=== PATIENT | female | born 1970 | race Caucasian/White ===

== ENCOUNTER → 2021-12-20 | Outpatient (CLI) | payer MEDICARE, OTHER ==
[~2021-12-20] MED LIST: ALBU90OI INH; BUSP10 PO; CYCL10 PO; Cyclobenzaprine5 MG PO; DOCU100 PO; DULO30 PO; Flonase 0.05% N16 GM; HYDACE5 PO; LEVSOD50 PO; MELO7.5 PO; METPRE4DP PO; MOMENI; NAPR500 PO; ONDA4 PO; PSEU120ER PO; TRAM50 PO; Vibramycin100 MG PO
[2021-12-20 13:06] LABS: BASOPHILS ABSOLUTE AUTO 0.11 K/mm3 (0.00-0.23); BASOPHILS PERCENT AUTO 1 % (0-2); EOSINOPHILS ABSOLUTE AUTO 0.39 K/mm3 (0.00-0.68); EOSINOPHILS PERCENT AUTO 4 % (0-6); Hematocrit 38.3 % (33.0-51.0); Hemoglobin 12.7 g/dL (11.5-16.0); Mean Corpuscular HGB 32.5 pg (26.0-34.0); Mean Corpuscular HGB Conc 33.2 g/dL (31.5-36.5); Mean Corpuscular Volume 98 fL (80-100); RDW Coefficient Variation 14.2 % (11.7-14.2); RDW Standard Deviation 50.9 fL (35.1-46.3); Red Blood Cell Count 3.91 M/mm3 (3.80-5.20); White Blood Cell Count 10.94 K/mm3 (4.00-11.30)
[2021-12-20 13:14] LABS: IMMATURE GRAN ABSOLUTE AUTO 0.04 K/mm3 (0.00-0.10); IMMATURE GRAN PERCENT AUTO 0 % (0-1); LYMPHOCYTES ABSOLUTE AUTO 5.14 K/mm3 (0.84-5.20); LYMPHOCYTES PERCENT AUTO 47 % (21-46); MONOCYTES ABSOLUTE AUTO 0.92 K/mm3 (0.16-1.47); MONOCYTES PERCENT AUTO 8 % (4-13); Mean Platelet Volume 10.1 fL (9.1-12.4); NEUTROPHILS ABSOLUTE AUTO 4.34 K/mm3 (1.96-9.15); NEUTROPHILS PERCENT AUTO 40 % (41-73); Platelet Count 117 K/mm3 (150-400)
[2021-12-20 13:15] LABS: Albumin, Blood 2.4 g/dL (3.4-5.0); Albumin/Globulin Ratio 0.4 (0.8-1.8); Bilirubin, Total 1.1 mg/dL (0.1-1.0); Bun/Creatinine Ratio 11.2 (12.0-20.0); Calcium, Blood 9.5 mg/dL (8.5-10.1); Creatinine, Blood 1.07 mg/dL (0.40-1.00); Potassium, Blood 3.4 mmol/L (3.5-5.5); Total Protein, Blood 8.4 g/dL (6.4-8.2)
== END ==
LOC: LAB SHORT 12:51
PROVIDERS: Physician Assistant
DX: R11.2 Nausea with vomiting, unspecified (principal)
CPT/HCPCS: 80053; 85025

== ENCOUNTER 2022-01-05 08:43 | Emergency (ER) | payer MEDICARE ==
[~2022-01-05 08:43] MED LIST changes: +Ativan1 MG; +BACLOFEN10 M4 PO; +ONDA4ODT MM; +OXYC10TA19; +Percocet 10-321 EACH PO; +TAMO10 PO
== END 2022-01-05 09:05 | disposition left against medical advice (07) ==
LOC: ER 08:43
DX: Z53.21 Procedure and treatment not carried out due to patient leaving prior to being seen by health care provider (principal)

== ENCOUNTER 2022-01-07 13:10 | Emergency (ER) | payer MEDICARE ==
[~2022-01-07] VITALS: Ht 172.7 cm; Wt 136.1 kg
[~2022-01-07 13:10] MED LIST changes: -OXYC10TA19; +OXYC10TA19 PO
[2022-01-07 14:22] LABS: Hematocrit 36.2 % (33.0-51.0); Hemoglobin 11.8 g/dL (11.5-16.0); Mean Corpuscular HGB Conc 32.6 g/dL (31.5-36.5); Mean Corpuscular Volume 101 fL (80-100); Mean Platelet Volume 10.1 fL (9.1-12.4); Platelet Count 113 K/mm3 (150-400); RDW Coefficient Variation 17.2 % (11.7-14.2); RDW Standard Deviation 63.6 fL (35.1-46.3); Red Blood Cell Count 3.58 M/mm3 (3.80-5.20); White Blood Cell Count 17.52 K/mm3 (4.00-11.30)
[2022-01-07 15:05] LABS: Alanine Aminotransfer (ALT/SGP 39 U/L (12-78); Albumin, Blood 2.2 g/dL (3.4-5.0); Albumin/Globulin Ratio 0.4 (0.8-1.8); Alk Phos 462 U/L (50-136); Anion Gap 9 mmol/L (6-16); Aspartate Aminotrans (AST/SGOT 197 U/L (12-37); Bilirubin, Total 3.6 mg/dL (0.1-1.0); Blood Urea Nitrogen 10 mg/dL (8-24); Bun/Creatinine Ratio 11.4 (12.0-20.0); CO2, Blood 25 mmol/L (21-32); Calcium, Blood 9.6 mg/dL (8.5-10.1); Chloride, Blood 103 mmol/L (98-108); Creatinine, Blood 0.88 mg/dL (0.40-1.00); Ethanol (Alcohol), Blood, Med <3 mg/dL; Globulin, Blood 6.2 g/dL (2.2-4.0); Glomerular Filtration Rate >60 (60-); Glucose, Blood 109 mg/dL (70-99); Sodium, Blood 137 mmol/L (136-145); Total Protein, Blood 8.4 g/dL (6.4-8.2)
[2022-01-07 15:22] LABS: BASOPHILS PERCENT MAN 0 % (0-2); EOSINOPHILS ABSOLUTE MAN 0.35 K/mm3 (0.00-0.68); EOSINOPHILS PERCENT MAN 2 % (0-6); LYMPHOCYTES % ATYPICAL MANUAL 1 % (0-0); LYMPHOCYTES PERCENT MAN 39 % (21-46); MONOCYTES ABSOLUTE MAN 1.57 K/mm3 (0.16-1.47); MONOCYTES PERCENT MAN 9 % (4-13); NEUTROPHILS ABSOLUTE MAN 8.58 K/mm3 (1.96-9.15); SEG NEUTROPHILS PERCENT MAN 49 % (41-73); TOTAL CELLS COUNTED 100
[2022-01-07 15:52] LABS: Acetaminophen, Random <2.0 ug/mL (10.0-30.0); Salicylate <1.7 mg/dL (2.8-20.0)
== END 2022-01-07 15:47 | disposition left against medical advice (07) ==
LOC: ER 13:10
PROVIDERS: Physician Assistant
DX: R47.81 Slurred speech (principal); C50.919 Malignant neoplasm of unspecified site of unspecified female breast; C79.51 Secondary malignant neoplasm of bone; Z53.21 Procedure and treatment not carried out due to patient leaving prior to being seen by health care provider
CPT/HCPCS: 36415; 70450; 80053; 85025; 93005; 93010; 96374; 99284-25; G0480; J1885

== ENCOUNTER 2022-01-16 17:35 | Inpatient (IN) | payer MEDICARE ==
[~2022-01-16] VITALS: Ht 172.7 cm; Wt 85.2 kg
[2022-01-16 18:05] LABS: Hematocrit 32.2 % (33.0-51.0); Hemoglobin 10.6 g/dL (11.5-16.0); Mean Corpuscular HGB 33.8 pg (26.0-34.0); Mean Corpuscular HGB Conc 32.9 g/dL (31.5-36.5); Mean Corpuscular Volume 103 fL (80-100); Mean Platelet Volume 9.8 fL (9.1-12.4); NRBC ABSOLUTE 0.02 K/mm3 (0.00-0.02); NRBC Auto 0.1 /100 WBC (0.0-0.2); Platelet Count 88 K/mm3 (150-400); RDW Coefficient Variation 18.8 % (11.7-14.2); RDW Standard Deviation 68.6 fL (35.1-46.3); Red Blood Cell Count 3.14 M/mm3 (3.80-5.20); White Blood Cell Count 15.48 K/mm3 (4.00-11.30)
[2022-01-16 18:27] LABS: Alanine Aminotransfer (ALT/SGP 39 U/L (12-78); Albumin, Blood 1.7 g/dL (3.4-5.0); Albumin/Globulin Ratio 0.3 (0.8-1.8); Alk Phos 428 U/L (50-136); Anion Gap 7 mmol/L (6-16); Aspartate Aminotrans (AST/SGOT 222 U/L (12-37); Bilirubin, Total 6.5 mg/dL (0.1-1.0); Blood Urea Nitrogen 13 mg/dL (8-24); Bun/Creatinine Ratio 14.6 (12.0-20.0); CO2, Blood 25 mmol/L (21-32); Calcium, Blood 10.4 mg/dL (8.5-10.1); Chloride, Blood 104 mmol/L (98-108); Creatinine, Blood 0.89 mg/dL (0.40-1.00); Glomerular Filtration Rate >60 (60-); Glucose, Blood 93 mg/dL (70-99); Potassium, Blood 4.2 mmol/L (3.5-5.5); Sodium, Blood 136 mmol/L (136-145); Total Protein, Blood 7.7 g/dL (6.4-8.2)
[2022-01-16 18:58] LABS: BASOPHILS ABSOLUTE MAN 0.15 K/mm3 (0.00-0.23); BASOPHILS PERCENT MAN 1 % (0-2); EOSINOPHILS PERCENT MAN 0 % (0-6); LYMPHOCYTES ABSOLUTE MAN 5.88 K/mm3 (0.84-5.20); LYMPHOCYTES PERCENT MAN 38 % (21-46); MONOCYTES ABSOLUTE MAN 0.92 K/mm3 (0.16-1.47); MONOCYTES PERCENT MAN 6 % (4-13); NEUTROPHILS ABSOLUTE MAN 8.51 K/mm3 (1.96-9.15); SEG NEUTROPHILS PERCENT MAN 55 % (41-73); TOTAL CELLS COUNTED 100
[2022-01-16 20:55] LABS: Source, Urine Clean Catch
[2022-01-16 21:01] LABS: Influenza A, PCR NEGATIVE (NEGATIVE); Influenza B, PCR NEGATIVE (NEGATIVE); Resp Syncytial Virus, PCR NEGATIVE (NEGATIVE); SARS-Cov-2 (COVID-19) PCR, MMC NEGATIVE (NEGATIVE)
[2022-01-16 21:02] LABS: Blood, Urine 2+ (Neg); Color, Urine Amber (P-Yellow); Glucose Qualitative, Urine Neg (Neg); Ketones, Urine 2+ (Neg); Leukocyte Esterase, Urine 1+ (Neg); Nitrite, Urine Pos (Neg); Protein, Urine 2+ (Neg); Specific Gravity, Urine 1.025 (1.003-1.022); Urobilinogen, Urine 4+ (Normal)
[2022-01-16 21:12] LABS: Appearance, Urine Hazy (Clear); Bilirubin, Urine 2+ (Neg)
[2022-01-16 21:23] LABS: Calcium Oxalate Crystals Mod /hpf
[2022-01-16 21:24] LABS: Bacteria Many /hpf; Squamous Epithelial Cells Few /hpf (Few); White Blood Cells, Urine 0-2 /hpf (0-5)
[2022-01-16 21:26] LABS: Other Crystals Few /hpf
[2022-01-16 23:31] LABS: International Normalized Ratio 1.34; Prothrombin Time Results 13.8 Sec (9.7-11.5)
--- NOTE | 2022-01-17 04:13 | NUR ---
SHIFT SUMMARY: PATIENT ADMITTED FROM ED. COMPLAINING / PAIN YELLING WITH ANY MOVEMENT OR PHYSICAL TOUCH BY STAFF. PATIENT IMMEDIATLY MEDICATED PER EMAR. PHYSICAL ASSESSMENT REVEALED JAUNDICED SKIN, EDEMA TO BLE, DISTENDED ABDOMEN WITH HYPERACTIVE BOWEL TONES. E/U RESP LCTA. HOFFMAN IN PLACE FOR RETENTION, DIXIE URINE DRAINING. NS@75/HR. SLEPT WELL THROUGH NIGHT PAIN TREATED PER EMAR. PATIENT IS ANXIOUS AND TEARFUL REGARDING HOSPITILIZATION, QUESTIONS AND CONCERNS ANSWERED TO THE BEST OF MY ABILITY. WCTM.
[2022-01-17 05:14] LABS: Hematocrit 27.7 % (33.0-51.0); Mean Corpuscular HGB 33.7 pg (26.0-34.0); Mean Corpuscular HGB Conc 32.5 g/dL (31.5-36.5); Mean Corpuscular Volume 104 fL (80-100); NRBC ABSOLUTE 0.02 K/mm3 (0.00-0.02); NRBC Auto 0.1 /100 WBC (0.0-0.2); Platelet Count 78 K/mm3 (150-400); RDW Coefficient Variation 18.8 % (11.7-14.2); RDW Standard Deviation 69.2 fL (35.1-46.3); Red Blood Cell Count 2.67 M/mm3 (3.80-5.20); White Blood Cell Count 16.22 K/mm3 (4.00-11.30)
[2022-01-17 05:43] LABS: Alanine Aminotransfer (ALT/SGP 31 U/L (12-78); Albumin, Blood 2.1 g/dL (3.4-5.0); Albumin/Globulin Ratio 0.4 (0.8-1.8); Alk Phos 354 U/L (50-136); Anion Gap 8 mmol/L (6-16); Aspartate Aminotrans (AST/SGOT 179 U/L (12-37); Bilirubin, Total 6.1 mg/dL (0.1-1.0); Blood Urea Nitrogen 13 mg/dL (8-24); Bun/Creatinine Ratio 14.7 (12.0-20.0); CO2, Blood 26 mmol/L (21-32); Calcium, Blood 10.4 mg/dL (8.5-10.1); Chloride, Blood 101 mmol/L (98-108); Creatinine, Blood 0.89 mg/dL (0.40-1.00); Glomerular Filtration Rate >60 (60-); Glucose, Blood 93 mg/dL (70-99); Potassium, Blood 3.6 mmol/L (3.5-5.5); Sodium, Blood 135 mmol/L (136-145); Total Protein, Blood 7.1 g/dL (6.4-8.2)
[2022-01-17 06:29] LABS: BAND PERCENT MAN 1 % (0-8); BASOPHILS ABSOLUTE MAN 0.64 K/mm3 (0.00-0.23); BASOPHILS PERCENT MAN 4 % (0-2); EOSINOPHILS ABSOLUTE MAN 0.32 K/mm3 (0.00-0.68); EOSINOPHILS PERCENT MAN 2 % (0-6); LYMPHOCYTES ABSOLUTE MAN 8.11 K/mm3 (0.84-5.20); LYMPHOCYTES PERCENT MAN 50 % (21-46); MONOCYTES ABSOLUTE MAN 0.97 K/mm3 (0.16-1.47); MONOCYTES PERCENT MAN 6 % (4-13); NEUTROPHILS ABSOLUTE MAN 6.16 K/mm3 (1.96-9.15); SEG NEUTROPHILS PERCENT MAN 37 % (41-73); TOTAL CELLS COUNTED 100
--- NOTE | 2022-01-17 18:33 | NUR ---
SHIFT SUMMARY PATIENT DROWSY AND LETHARGIC THROUGHOUT SHIFT. WAKES TO VERBAL STIMULI. ANSWERS APPROPRIATELY BUT FORGETFUL. PAIN SEVERE AT BEGINNING OF SHIFT, BETTER CONTROLLED THIS AFTERNOON WITH PO OXYCODONE AND FENTANYL PATCH. SKIN JAUNDICED. GENERALIZED WEAKNESS AND PAIN. HOFFMAN CATHETER DRAINING DARK URINE. ATTENDS IN PLACE. REPOSITIONED PRN. IV FLUIDS RUNNING. POOR PO INTAKE, SLETP MOST OF SHIFT. DR PARSONS TO SEE PATIENT TO DISCUSS PLAN TREATMENT OF CANCER VS. HOSPICE. WILL REPORT TO REGIONAL OWNER OPERATOR TRUCK DRIVER RN.
--- NOTE | 2022-01-17 18:52 | NUR ---
theraputic tiem with patient awaiting review by dr bedoya.
--- NOTE | 2022-01-18 04:42 | NUR ---
SUMMARY: PT A/OX4 BUT IS FORGETFULL, DROWSY AND LETHARGIC MOST OF SHIFT. SHE'S WAKEFUL TO VOICE AND ABLE TO SPECIFY NEEDS WHEN STAFF IN ROOM BUT DOESN'T CALL FOR ASSIST OFTEN AND HAS SOME TROUBLE SEARCHING FOR WORDS. PT CONT'S TO REPORT PAIN W/IV TORADOL AND PO ROXICODONE RECIEVED FOR TOLERABLE RELIEF. SKIN IS JAUNICED AND DARK URINE OBSERVED TO PATENT/DRAINING HOFFMAN. ATTENDS IN PLACE. TURN SCHEDULE MAINTAINED AND PILLOWS IN PLACE FOR SBD PREVENTION. POOR PO PERSISTS AND IVF INFUSING W/ABX RECIEVED PER EMAR. CX STILL PENDING TO DISCUSS PLAN OF CARE. NO ACUTE CHANGES, VSS/AFEBRILE. WCTM AND REPORT TO DAY RN.
[2022-01-18 05:03] LABS: Hematocrit 28.5 % (33.0-51.0); Hemoglobin 9.1 g/dL (11.5-16.0); Mean Corpuscular HGB 33.7 pg (26.0-34.0); Mean Corpuscular HGB Conc 31.9 g/dL (31.5-36.5); Mean Corpuscular Volume 106 fL (80-100); Mean Platelet Volume 10.1 fL (9.1-12.4); NRBC ABSOLUTE 0.02 K/mm3 (0.00-0.02); NRBC Auto 0.2 /100 WBC (0.0-0.2); Platelet Count 85 K/mm3 (150-400); RDW Coefficient Variation 18.8 % (11.7-14.2); RDW Standard Deviation 72.4 fL (35.1-46.3); White Blood Cell Count 12.47 K/mm3 (4.00-11.30)
[2022-01-18 05:36] LABS: Albumin, Blood 1.8 g/dL (3.4-5.0); Anion Gap 3 mmol/L (6-16); Blood Urea Nitrogen 11 mg/dL (8-24); Bun/Creatinine Ratio 11.1 (12.0-20.0); CO2, Blood 28 mmol/L (21-32); Calcium, Blood 10.6 mg/dL (8.5-10.1); Chloride, Blood 105 mmol/L (98-108); Creatinine, Blood 0.99 mg/dL (0.40-1.00); Glomerular Filtration Rate 59 (60-); Glucose, Blood 82 mg/dL (70-99); Phosphorus, Blood 3.6 mg/dL (2.5-4.9); Potassium, Blood 3.8 mmol/L (3.5-5.5); Sodium, Blood 136 mmol/L (136-145)
--- NOTE | 2022-01-18 05:41 | NUR ---
CLARIFIED W/ THAT FENTANYL IV Q4 PRN CAN BE GIVEN IN ADDITION TO FENTANYL PATCH CURRENTLY IN PLACE. THIS RN ALSO ALERTED HIM TO LOW UO (APPROX 300 MLS CONCENTRATED URINE) THIS SHIFT IN PRESENCE OF DECREASED PO INTAKE AND IVF ORDER COMPLETION. HE INSTRUCTED TO CONTINUE CURRENT IVF X1 MORE LITER.
[2022-01-18 06:22] LABS: BASOPHILS PERCENT MAN 0 % (0-2); EOSINOPHILS PERCENT MAN 0 % (0-6); LYMPHOCYTES % ATYPICAL MANUAL 1 % (0-0); LYMPHOCYTES ABSOLUTE MAN 4.98 K/mm3 (0.84-5.20); LYMPHOCYTES PERCENT MAN 39 % (21-46); MONOCYTES ABSOLUTE MAN 0.74 K/mm3 (0.16-1.47); MONOCYTES PERCENT MAN 6 % (4-13); NEUTROPHILS ABSOLUTE MAN 6.73 K/mm3 (1.96-9.15); SEG NEUTROPHILS PERCENT MAN 54 % (41-73); TOTAL CELLS COUNTED 100
--- NOTE | 2022-01-18 07:30 | NUR ---
ASSUMED CARE: PT RESTING IN BED BUT VERY DISORIENTED TO DATE AND TIME. COORDINATOR STEPPED INTO ROOM TO FIX IV BEEPING AND PT STATED THERE WAS SOMEONE DRINKING SODA UNDER HER BED. THIS RN WENT INTO ROOM AND HAD TO REORIENT TO DATE AND TIME BECAUSE PT THOUGHT IT WAS NIGHT TIME. NO ACUTE NEEDS AT THIS TIME.
--- NOTE | 2022-01-18 09:04 | NUR ---
DR PAEZ NOTIFIED THAT PT WAS HALLUCINATING. DR DEFERRED TO DR PARSONS. AWAITING HIS CONSULT
[2022-01-18 10:24] LABS: International Normalized Ratio 1.32; Prothrombin Time Results 13.6 Sec (9.7-11.5)
--- NOTE | 2022-01-18 11:46 | NUR ---
CALL TO DR PARSONS OFFICE TO ENSURE THAT HE WAS AWARE OF CONSULT. STAFF STATES DR PARSONS IS AWARE AND WILL LIKELY COME SEE PT THIS EVENING. ALSO STATES THAT THEY ARE AWARE THAT PT HALLUCINATES AND THAT HE HAS BEEN HALLUCINATING
--- NOTE | 2022-01-18 13:57 | NUR ---
CALL TO PT'S MOTHER TO LET HER KNOW THAT THIS RN CONTACTED DR PARSONS' OFFICE AND STAFF STATED THAT THEY THOUGHT HE WOULD BE HERE TO SEE PT THIS AFTERNOON. PT'S MOTHER SAID SHE WILL HEAD OVER. CORN BREEDER CAME TO SEE PT AND STATED SHE WOULD COME BACK WHEN PT'S MOTHER ARRIVES.
--- NOTE | 2022-01-18 18:02 | NUR ---
pt hallucinating more. Awaiting plan from oncology.
--- NOTE | 2022-01-18 18:30 | NUR ---
SHIFT SUMMARY: PT'S MOTHER AT BEDSIDE, WAITING FOR DR PARSONS TO COME SEE PT AND DISCUSS PROGNOSIS. MEDICATED PT X2 FOR NAUSEA AND X2 FOR PAIN. FREQUENT REPOSITIONING FOR COMFORT. NO FURTHER NEEDS AT THIS TIME.
--- NOTE | 2022-01-18 19:45 | NUR ---
CONSULTED. NEW ORDERS RECIEVED FOR HOSPICE REFERRAL AND COMFORT CARE. MD RX'D NEW COMFORT CARE MEDS: PRN ROXICODONE PO SOLUTION, IV ATIVAN SCOPALAMINE PATCH, ATROPINE GTTS AND HE INCREASED PT'S FENTANYL PATCH DOSE TO 37MCG Q3 DAYS. WCTM AND MEDICATE PRN.
--- NOTE | 2022-01-19 03:11 | NUR ---
SUMMARY: CX'D AND PT WAS PLACED ON COMFORT MEASURES THIS SHIFT W/PALLIATIVE CARE CX PENDING. SHE APPEARS DEPRESSED, WITHDRAWN AND HAS BEEN TEARFUL AT TIMES W/SUPPORT AND THERAPEUTIC COMMUNICATION PROVIDED. PT HAS BECOME MORE DROWSY, SLEEPING MAJORITY OF NOCTE AND IS ONLY WAKEFUL TO VOICE AND CARE. SHE CONT'S TO SEARCH FOR WORDS AND SEEMS TO BE HAVING MORE DIFFICULTY SPECIFYING NEEDS BUT ANSWERS SOME Q'S APPROPRIATELY. ANXIETY AND PAIN MANAGED W/IV ATIVAN, PO ROXICODONE SOLUTION AND NEW DOSE OF FENTANYL PATCH WAS APPLIED. TURN SCHEDULE MAINTAINED AND PILLOWS PLACED FOR SBD PREVENTION. HOFFMAN REMAINS PATENT/DRAINING DARK, CONCENTRATED LOW UO. SHE REFUSED PO MEDS AND WAS OFFERED SIPS OF LIQ BUT INTAKE WAS MINIMAL, MOUTH CARE ATTENDED TO PRN. NO ACUTE CHANGES. WCTM AND REPORT TO DAY RN.
[2022-01-19 05:27] LABS: BASOPHILS ABSOLUTE AUTO 0.09 K/mm3 (0.00-0.23); BASOPHILS PERCENT AUTO 1 % (0-2); EOSINOPHILS ABSOLUTE AUTO 0.39 K/mm3 (0.00-0.68); EOSINOPHILS PERCENT AUTO 2 % (0-6); Hematocrit 29.5 % (33.0-51.0); Hemoglobin 9.4 g/dL (11.5-16.0); Mean Corpuscular HGB 33.8 pg (26.0-34.0); Mean Corpuscular HGB Conc 31.9 g/dL (31.5-36.5); Mean Corpuscular Volume 106 fL (80-100); Mean Platelet Volume 10.4 fL (9.1-12.4); NRBC ABSOLUTE 0.03 K/mm3 (0.00-0.02); NRBC Auto 0.2 /100 WBC (0.0-0.2); Platelet Count 90 K/mm3 (150-400); RDW Coefficient Variation 18.9 % (11.7-14.2); RDW Standard Deviation 74.7 fL (35.1-46.3); Red Blood Cell Count 2.78 M/mm3 (3.80-5.20); White Blood Cell Count 16.73 K/mm3 (4.00-11.30)
[2022-01-19 05:34] LABS: IMMATURE GRAN ABSOLUTE AUTO 0.13 K/mm3 (0.00-0.10); IMMATURE GRAN PERCENT AUTO 1 % (0-1); LYMPHOCYTES ABSOLUTE AUTO 5.51 K/mm3 (0.84-5.20); LYMPHOCYTES PERCENT AUTO 33 % (21-46); MONOCYTES ABSOLUTE AUTO 1.31 K/mm3 (0.16-1.47); MONOCYTES PERCENT AUTO 8 % (4-13); NEUTROPHILS PERCENT AUTO 56 % (41-73)
[2022-01-19 05:52] LABS: Alanine Aminotransfer (ALT/SGP 33 U/L (12-78); Albumin, Blood 1.7 g/dL (3.4-5.0); Albumin/Globulin Ratio 0.3 (0.8-1.8); Alk Phos 360 U/L (50-136); Anion Gap 6 mmol/L (6-16); Aspartate Aminotrans (AST/SGOT 241 U/L (12-37); Bilirubin, Total 5.6 mg/dL (0.1-1.0); Blood Urea Nitrogen 12 mg/dL (8-24); CO2, Blood 26 mmol/L (21-32); Calcium, Blood 10.7 mg/dL (8.5-10.1); Chloride, Blood 104 mmol/L (98-108); Creatinine, Blood 0.92 mg/dL (0.40-1.00); Globulin, Blood 5.2 g/dL (2.2-4.0); Glomerular Filtration Rate >60 (60-); Glucose, Blood 79 mg/dL (70-99); Potassium, Blood 3.9 mmol/L (3.5-5.5); Sodium, Blood 136 mmol/L (136-145); Total Protein, Blood 6.9 g/dL (6.4-8.2)
--- NOTE | 2022-01-19 07:24 | NUR ---
ASSUMED CARE: PT RESTING QUIETLY IN BED. COMFORT CARE ORDERS IN PLACE. PT APPEARS TO BE RESTING COMFORTABLY AT THIS TIME.
--- NOTE | 2022-01-19 11:58 | NUR ---
PT'S MOTHER AND SON AT BEDSIDE. REQUESTING TO SPEAK WITH CARE MANAGEMENT ABOUT FURTHER PLANS FOR DISCHARGE. MADE CHIRAG, WOOD SCALER AWARE OF THIS. NO FURTHER NEEDS AT THIS TIME
--- NOTE | 2022-01-19 17:33 | NUR ---
SHIFT SUMMARY: FAMILY HAS BEEN AT BEDSIDE T/O DAY. PT RESTING QUIETLY. MEDICATED X1 FOR ANXIETY. CARE MANAGEMENT SPOKE WITH FAMILY AOBUT THE POSSIBILITY OF GOING HOME WITH HOSPICE. NO ACUTE NEEDS OR CONCERNS AT THIS TIME.
--- NOTE | 2022-01-19 19:51 | NUR ---
COMFORT: PATIENT REPORTS PAIN WITH T&P. PREMEDICATED PER MAR. FOR T&P, PO FLIUDS GIVEN. FAMILY IS AT BEDSIDE. EMOTIONAL SUPPORT GIVEN.
--- NOTE | 2022-01-19 20:05 | NUR ---
pt declining per nusrsing less responsive. family at [place] camille evening. Mother expressing severe stress at bringing her home. [place] 88 [place] 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
--- NOTE | 2022-01-19 21:21 | NUR ---
COMFORT: PATIENT HAD GOOD EFFECT FROM PAIN MEDICATION. RESTING COMFORTABLY.
--- NOTE | 2022-01-20 00:45 | NUR ---
COMFORT: PATIETN CONTINUES TO HAVE GOOD EFFECT FROM PAIN MEDICATION. RESTING WITH EYES CLOSED. NO S/S OF PAIN OR DISCONFORT. HICCUPS OBSERVED INTERMITTENTLY.
--- NOTE | 2022-01-20 03:29 | NUR ---
COMFORT: PATIENT REPORTS PAIN 8/10 GENERALIZED AND WITH REPOSITIONING. MEDICATED PER MAR. PO FLUIDS AND EMOTIONAL CARE GIVEN.
--- NOTE | 2022-01-20 07:56 | NUR ---
COMFORT: PATIENT IS MOANING AND HAS INTERRMITTENT HICUPS. REPORTING GENERALIZED PAIN 8/10. MEDICATED WITH ROXICODONE, PO FLUIDS AND T&P ARE GIVEN. PATIENT REFUSES FOOD.
--- NOTE | 2022-01-20 07:59 | NUR ---
SHIFT SUMMARY: PATIENT HAS GOOD EFFECT FROM ROXICODONE. MORE AWAKE THIS MORNING, TAKING SIPS OF WATER BUT NO APPETITE FOR FOOD. HOFFMAN IS DRAINING A TEA COLORED URINE. BED ALARM IS ON FOR SAFETY.
[2022-01-20] MEDS ORDERED: TRANSDERM-SCOP1 EA10 TD (13:41)
[2022-01-20] MEDS ORDERED: SENN187 PO (13:42)
[2022-01-20] MEDS ORDERED: OXYCODONE-ACET120 ML PO (13:43)
--- NOTE | 2022-01-20 13:58 | NUR ---
DISCHARGE SUMMARY PT DISCHARGED TO HOME ON HOSPICE. PT LEFT ROOM JUST PRIOR TO THIS NOTE VIA [facility] WITH [facility]. IV DC'D AND BELONGINGS RETURNED. PT MEDICATED FOR PAIN PRIOR TO LEAVING. ALL DISCHARGE INSTRUCTIONS SENT WITH PATIENT.
== END 2022-01-20 13:50 | disposition hospice, home (50) | DRG 640 ==
LOC: ER 17:35 → MEDS 17:36 → ER 20:28 → MEDS 20:28
PROVIDERS: Emergency Medicine; Internal Medicine; ADMIT Internal Medicine
DX: E86.0 Dehydration (principal); J18.9 Pneumonia, unspecified organism; C78.7 Secondary malignant neoplasm of liver and intrahepatic bile duct; C79.51 Secondary malignant neoplasm of bone; R64 Cachexia; M48.56XA Collapsed vertebra, not elsewhere classified, lumbar region, initial encounter for fracture; G89.3 Neoplasm related pain (acute) (chronic); Z20.822 Contact with and (suspected) exposure to COVID-19; Z66 Do not resuscitate; M48.061 Spinal stenosis, lumbar region without neurogenic claudication; Z51.5 Encounter for palliative care; F17.210 Nicotine dependence, cigarettes, uncomplicated; E83.52 Hypercalcemia; D63.0 Anemia in neoplastic disease; C50.812 Malignant neoplasm of overlapping sites of left female breast; D69.6 Thrombocytopenia, unspecified; E03.9 Hypothyroidism, unspecified; Z68.28 Body mass index [BMI] 28.0-28.9, adult; Z17.0 Estrogen receptor positive status [ER+]; Z98.51 Tubal ligation status; Z90.13 Acquired absence of bilateral breasts and nipples; Z88.0 Allergy status to penicillin; Z88.6 Allergy status to analgesic agent; Z79.899 Other long term (current) drug therapy
CPT/HCPCS: 0241U; 36415; 51702; 71045; 74177; 80053; 80069; 81001; 82140; 83605; 85025; 85610; 87040; 87086; 96372; 96374; 96375; 96376; 99285-25; A9270; G0378; J0696; J1650; J1885; J1940; J2060; J2405; J2550; J3010; J7030; P9046; Q9967